=== PATIENT | female | born 1925 | race Asian ===

== ENCOUNTER 2017-07-21 09:39 | Emergency (ER) | payer MEDICARE, OTHER ==
[~2017-07-21] VITALS: Ht 152.4 cm; Wt 45.0 kg
[~2017-07-21 09:39] MED LIST: 1-ME1LIQ PO; ATOR10 PO; CALC250 PO; COMMODE 3:1; ENAL20TA PO; HYDR12.56 PO; METO25TA6 PO; SAXA5TAB2 PO; TUB TRANSFER BENCH; WALKER ROLLING; WALKER STANDARD; WHEELCHAIR RENTAL RA
[2017-07-21 09:45] VITALS: BP 167/72; PULSE 80; RESP 16; TEMP 98.5; O2SAT 96
[2017-07-21] MEDS ORDERED: SODIUM CHLOR 0.9% 1000 ML INJ 1,000 ML IV SCH (10:18)
[2017-07-21 10:30] VITALS: O2SAT 98
[2017-07-21] MEDS ORDERED: SODIUM CHLORIDE 0.9% FLUSH 10 ML FLUSH IV FLUSH PRN (10:30)
[2017-07-21] MEDS ORDERED: ONDANSETRON HCL 4 MG/2 ML VIAL IVP ONE (10:30)
[2017-07-21] MEDS ORDERED: MORPHINE SULFATE 4 MG/ML INJ IV PUSH ONE (10:30)
--- NOTE | 2017-07-21 10:30 | PD ---
HPI Chief Complaint: Abdominal Pain Time Seen by Provider: 10:18 Travel History International Travel<30 days: No Contact w/Intl Traveler<30days: No Traveled to known affect area: No History of Present Illness HPI patient complained of initially having left fingers "locking up" in place and painful, took some ibuprofen which caused pain in her fingers to improve and go away but then started to develop lower abd pain, 8/10, intermittent, over llq, assoc with nausea, but no vomiting or diarrhea/constipation. PMHX: DM, HTN , HI CHOL PFSH Past Medical History Arthritis: Yes Heart Rhythm Problems: No Cancer: No Cardiovascular Problems: Yes High Cholesterol: Yes Chest Pain: No Congestive Heart Failure: No Cerebrovascular Accident: No Diabetes: Yes Diminished Hearing: No Endocrine: Yes Genitourinary: No Hypertension: Yes Immune Disorder: No Musculoskeletal: Yes Neurologic: No Psychiatric: No Reproductive: No Respiratory: No Migraines: No Seizures: No Thyroid Disease: No Menopausal: Yes Past Surgical History Abdominal Surgery: No Cardiac Surgery: No Ear Surgery: No Endocrine Surgery: No Eye Surgery: No Genitourinary Surgery: No Gynecologic Surgery: No Oral Surgery: Yes (teeth extracted) Thoracic Surgery: No Social History Alcohol Use: No Tobacco Use: No Substance Use: No Allergies-Medications (Allergen,Severity, Reaction): Coded Allergies: No Known Allergies (Unverified , 07/21/17) Reported Meds & Prescriptions Reported Meds & Active Scripts Active Reported Vitamin D2 (Ergocalciferol) 2,000 Unit Tab 50,000 Units PO WEEKLY Aspirin 81 Mg Chew 81 Mg CHEW DAILY Centrum (Multiple Vitamins W/ Minerals) 1 Chew 1 Tab CHEW DAILY Metformin (Metformin HCl) 500 Mg Tab 500 Mg PO DAILY With a meal Metoprolol Tartrate 25 Mg Tab 25 Mg PO DAILY Lipitor (Atorvastatin Calcium) 10 Mg Tab 10 Mg PO HS Onglyza (Saxagliptin) 5 Mg Tab 5 Mg PO DAILY Hydrochlorothiazide 12.5 Mg Cap 12.5 Mg PO DAILY Enalapril (Enalapril Maleate) 20 Mg Tab 20 Mg PO DAILY Amlodipine (Amlodipine Besylate) 10 Mg Tab 10 Mg PO DAILY Review of Systems Except as stated in HPI: all other systems reviewed are Neg Gastrointestinal: Positive: Nausea, Abdominal Pain Physical Exam Narrative GENERAL: SKIN: Warm and dry. HEAD: Atraumatic. Normocephalic. EYES: Pupils equal and round. No scleral icterus. No injection or drainage. ENT: No nasal bleeding or discharge. Mucous membranes pink and moist. NECK: Trachea midline. No JVD. CARDIOVASCULAR: Regular rate and rhythm. RESPIRATORY: No accessory muscle use. Clear to auscultation. Breath sounds equal bilaterally. GASTROINTESTINAL: Abdomen soft, non-tender, nondistended, LLQ TTP MUSCULOSKELETAL: Extremities without clubbing, cyanosis, or edema. No obvious deformities. NEUROLOGICAL: Awake and alert. No obvious cranial nerve deficits. Motor grossly within normal limits. Five out of 5 muscle strength in the arms and legs. Normal speech. PSYCHIATRIC: Appropriate mood and affect; insight and judgment normal. Data Data Last Documented VS Vital Signs Date Time Temp Pulse Resp B/P (MAP) Pulse Ox O2 Delivery O2 Flow Rate FiO2 07/21/17 09:45 98.5 80 16 167/72 (103) 96 Orders Orders Complete Blood Count With Diff (07/21/17 10:18) Comprehensive Metabolic Panel (07/21/17 10:18) Lipase (07/21/17 10:18) Prothrombin Time / Inr (Pt) (07/21/17 10:18) Act Partial Throm Time (Ptt) (07/21/17 10:18) Urinalysis - C+S If Indicated (07/21/17 10:18) Ct Abd/Pel W/O Iv Contrast (07/21/17 10:18) Iv Access Insert/Monitor (07/21/17 10:18) Ecg Monitoring (07/21/17 10:18) Oximetry (07/21/17 10:18) NPO (07/21/17 10:18) Morphine Inj (Morphine Inj) (07/21/17 10:30) Ondansetron Inj (Zofran Inj) (07/21/17 10:30) Sodium Chlor 0.9% 1000 Ml Inj (Ns 1000 M (07/21/17 10:18) Sodium Chloride 0.9% Flush (Ns Flush) (07/21/17 10:30) Electrocardiogram (07/21/17 10:18) Ckmb (Isoenzyme) Profile (07/21/17 10:18) Troponin I (07/21/17 10:18) CKMB (07/21/17 10:41) CKMB% (07/21/17 10:41) Ceftriaxone Inj (Rocephin Inj) (07/21/17 12:00) Metronidazole (Flagyl) (07/21/17 12:00) Urine Culture (07/21/17 11:35) Labs Laboratory Tests Test 07/21/17 10:41 07/21/17 11:35 White Blood Count 12.5 TH/MM3 Red Blood Count 3.73 MIL/MM3 Hemoglobin 11.7 GM/DL Hematocrit 34.6 % Mean Corpuscular Volume 92.8 FL Mean Corpuscular Hemoglobin 31.5 PG Mean Corpuscular Hemoglobin Concent 33.9 % Red Cell Distribution Width 12.8 % Platelet Count 263 TH/MM3 Mean Platelet Volume 8.2 FL Neutrophils (%) (Auto) 91.0 % Lymphocytes (%) (Auto) 3.2 % Monocytes (%) (Auto) 1.8 % Eosinophils (%) (Auto) 0.2 % Basophils (%) (Auto) 3.8 % Neutrophils # (Auto) 11.4 TH/MM3 Lymphocytes # (Auto) 0.4 TH/MM3 Monocytes # (Auto) 0.2 TH/MM3 Eosinophils # (Auto) 0.0 TH/MM3 Basophils # (Auto) 0.5 TH/MM3 CBC Comment AUTO DIFF Differential Comment AUTO DIFF CONFIRMED Platelet Estimate NORMAL Platelet Morphology Comment NORMAL Prothrombin Time 10.1 SEC Prothromb Time International Ratio 0.9 RATIO Activated Partial Thromboplast Time 22.4 SEC Blood Urea Nitrogen 25 MG/DL Creatinine 0.83 MG/DL Random Glucose 210 MG/DL Total Protein 8.0 GM/DL Albumin 4.4 GM/DL Calcium Level 9.6 MG/DL Alkaline Phosphatase 60 U/L Aspartate Amino Transf (AST/SGOT) 24 U/L Alanine Aminotransferase (ALT/SGPT) 18 U/L Total Bilirubin 0.6 MG/DL Sodium Level 135 MEQ/L Potassium Level 3.7 MEQ/L Chloride Level 102 MEQ/L Carbon Dioxide Level 22.4 MEQ/L Anion Gap 11 MEQ/L Estimat Glomerular Filtration Rate 65 ML/MIN Total Creatine Kinase 122 U/L Creatine Kinase MB 2.5 NG/ML Troponin I LESS THAN 0.02 NG/ML Lipase 106 U/L Urine Collection Type CLEAN CATCH Urine Color YELLOW Urine Turbidity SLIGHT Urine pH 5.0 Urine Specific [place] 1.016 Urine Protein NEG mg/dL Urine Glucose (UA) 250 mg/dL Urine Ketones 15 mg/dL Urine Occult Blood TRACE Urine Nitrite NEG Urine Bilirubin NEG Urine Leukocyte Esterase NEG Urine RBC 0-3 /hpf Urine WBC 3-5 /hpf Urine Squamous Epithelial Cells 0-5 /hpf Urine Amorphous Sediment FEW Urine Bacteria MANY /hpf Microscopic Urinalysis Comment CULTURE INDICATED Urine Collection Time 1135 MDM Medical Decision Making Medical Screen Exam Complete: Yes Emergency Medical Condition: Yes Medical Record Reviewed: Yes Interpretation(s) NSR 73, RBBB, NO STEMI PATTERN, NO SGARBOSSA'S CRITERIA NOTED Differential Diagnosis COLITIS V ENTERITIS V DIVERTIC V OVARIAN MASS V UTERINE MASS Narrative Course DURING EVALUATION PATIENT WAS FOUND TO HAVE NL LFT'S, NL PANCREAS, NO E/O PERFORATION, OR SBO...DID HOWEVER NOTE DIVERTICULOSIS OF SIGMOID AND CALCIFIED UTERINE FIBROIDS...IN ADDITION FOUND SLIGHT LEUKOCYTOSIS OF 12K, WILL PROVIDE IV ABX Diagnosis Primary Impression: Sigmoid diverticulosis Additional Impression: CALCIFIED FIBROID UTERUS Patient Instructions: Diverticulitis Diet (ED), Diverticulosis (DC), General Instructions Scripts Metronidazole (Flagyl) 500 Mg Tab 500 MG PO TID for Infection, #21 TAB 0 Refills Prov: Grupo Valencia MD 07/21/17 Ciprofloxacin (Cipro) 500 Mg Tab 500 MG PO BID for Infection, #10 TAB 0 Refills Prov: Grupo Valencia MD 07/21/17 Tramadol (Ultram) 50 Mg Tab 50 MG PO Q6H Y for PAIN, #20 TAB 0 Refills Prov: Grupo Valencia MD 07/21/17 Disposition: 01 DISCHARGE HOME Condition: Stable Grupo Valencia MD Jul 21, 2017 10:30
[2017-07-21 10:48] LABS: AUTOMATED NEUTROPHIL # 11.4 TH/MM3 (1.8-7.7); BASOPHIL # 0.5 TH/MM3 (0-0.2); BASOPHIL % 3.8 % (0.0-2.0); EOSINOPHIL % 0.2 % (0.0-4.0); HEMATOCRIT 34.6 % (35.0-46.0); LYMPH % 3.2 % (9.0-44.0); LYMPHOCYTE # 0.4 TH/MM3 (1.0-4.8); MEAN CELL VOLUME 92.8 FL (80.0-100.0); MEAN CORPUSCULAR HEMOGLOBIN 31.5 PG (27.0-34.0); MEAN CORPUSCULAR HGB CONC 33.9 % (32.0-36.0); MONO % 1.8 % (0.0-8.0); PLATELET COUNT 263 TH/MM3 (150-450); RED BLOOD COUNT 3.73 MIL/MM3 (4.00-5.30); RED CELL DISTRIBUTION WIDTH 12.8 % (11.6-17.2); WHITE BLOOD COUNT 12.5 TH/MM3 (4.0-11.0)
[2017-07-21] MEDS ORDERED: ENAL20TA PO (10:49)
[2017-07-21] MEDS ORDERED: HYDR12.57 PO (10:49)
[2017-07-21] MEDS ORDERED: METO25TA3 PO (10:49)
[2017-07-21] MEDS ORDERED: LIPI10TA PO (10:49)
[2017-07-21] MEDS ORDERED: METF500T PO (10:49)
[2017-07-21] MEDS ORDERED: AMLO10TA2 PO (10:49)
[2017-07-21] MEDS ORDERED: ONGL5TAB PO (10:49)
[2017-07-21] MEDS ORDERED: ERGO2000 PO (10:52)
[2017-07-21] MEDS ORDERED: CENTCHW4 CHEW (10:52)
[2017-07-21] MEDS ORDERED: ASPI81CH CHEW (10:52)
[2017-07-21 10:58] LABS: HEMO FLAGS AUTO DIFF
[2017-07-21 11:01] LABS: CHLORIDE 102 MEQ/L (98-107); POTASSIUM 3.7 MEQ/L (3.5-5.1); SODIUM (NA) 135 MEQ/L (136-145)
[2017-07-21 11:05] LABS: ANION GAP 11 MEQ/L (5-15); APTT (PATIENT) 22.4 SEC (24.3-30.1); BICARBONATE 22.4 MEQ/L (21.0-32.0); BLOOD UREA NITROGEN 25 MG/DL (7-18); INTERNATIONAL NORMALIZED RATIO 0.9 RATIO; PROTHROMBIN TIME - PATIENT 10.1 SEC (9.8-11.6)
[2017-07-21 11:08] LABS: ALT (GPT) 18 U/L (10-53); AST (GOT) 24 U/L (15-37); GLOMERULAR FILTRATION RATE 65 ML/MIN (>89)
[2017-07-21 11:09] LABS: TOTAL BILIRUBIN ADULT 0.6 MG/DL (0.2-1.0)
[2017-07-21 11:10] LABS: CREATINE KINASE 122 U/L (26-192)
[2017-07-21 11:11] LABS: ALKALINE PHOSPHATASE 60 U/L (45-117)
--- NOTE | 2017-07-21 11:14 | RADRPT ---
EXAM DATE/TIME: 07/21/2017 10:50 [facility] COMPARISON: No previous studies available for comparison. INDICATIONS : Lower abdominal pain and nausea. ORAL CONTRAST: No oral contrast ingested. RADIATION DOSE: 6.17 CTDIvol (mGy) ; Patient motion MEDICAL HISTORY : Hypertension. Diabetes. SURGICAL HISTORY : Left hip surgery. ENCOUNTER: Initial ACUITY: 1 day PAIN SCALE: 3/10 LOCATION: lower quadrant TECHNIQUE: Volumetric scanning of the abdomen and pelvis was performed. Using automated exposure control and ad justment of the mA and/or kV according to patient size, radiation dose was kept as low as reasonably achievable to obtain optimal diagnostic quality images. DICOM format image data is available electro nically for review and comparison. FINDINGS: LOWER LUNGS: The visualized lower lungs are clear. LIVER: Homogeneous density without lesion. There is no dilation of the biliary tree. No calcified gallston es. SPLEEN: Normal size without lesion. PANCREAS: Within normal limits. KIDNEYS: Small 1.2 x 1.0 cm fat density mass in the superior pole of the right kidney consistent with an angio myolipoma. Kidneys otherwise demonstrate symmetrical size without evidence of radiopaque renal calcul i or hydronephrosis. ADRENAL GLANDS: Within normal limits. VASCULAR: There is no aortic aneurysm. Heavily calcified infrarenal abdominal aorta and visceral branches. BOWEL/MESENTERY: Mild sigmoid diverticulosis. No significant inflammatory changes to suggest diverticulitis. Bowel oth erwise appears unremarkable without evidence for obstruction. No significant free fluid or free air. No drainable fluid collections. ABDOMINAL WALL: Within normal limits. RETROPERITONEUM: There is no lymphadenopathy. BLADDER: No wall thickening or mass. REPRODUCTIVE: Multiple densely calcified uterine masses consistent with leiomyomas INGUINAL: There is no lymphadenopathy or hernia. MUSCULOSKELETAL: Old right inferior pubic ramus fracture. Left femoral intramedullary mason in place. Degenerative shepard es of the lower lumbar spine. CONCLUSION: 1. No definitive CT findings to explain patient's abdominal pain. 2. 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 3. Mild sigmoid diverticulosis without significant inflammatory change to suggest diverticulitis. 4. Densely calcified uterine leiomyomas. Jarad Wilson MD on July 21, 2017 at 11:08 Board Certified Radiologist. This report was verified electronically.
[2017-07-21 11:19] LABS: PLATELET ESTIMATE SMEAR NORMAL (NORMAL); PLATELET MORPHOLOGY NORMAL (NORMAL); SCAN/DIFF AUTO DIFF CONFIRMED
[2017-07-21 11:23] LABS: CKMB 2.5 NG/ML (0.5-3.6)
[2017-07-21 11:46] LABS: BLOOD, URINE TRACE (NEG); GLUCOSE,URINE 250 mg/dL (NEG); KETONE, URINE 15 mg/dL (NEG); NITRITE,URINE NEG (NEG)
[2017-07-21 11:55] LABS: BACTERIA, URINE MANY /hpf; COMMENT (UR) CULTURE INDICATED; CULTURE IF INDICATED CULTURE INDICATED; METHOD OF COLLECTION CLEAN CATCH; RBC, URINE 0-3 /hpf (0-3); SQUAMOUS EPITHELIAL CELL URINE 0-5 /hpf (0-5); URINE COLOR YELLOW (YELLW/STRAW)
[2017-07-21] MEDS ORDERED: metroNIDAZOLE 500 MG TAB PO ONE (12:00)
[2017-07-21] MEDS ORDERED: cefTRIAXone INJ 1,000 MG in SODIUM CHLORIDE 0.9% INJ 100 ML IV ONE (12:00)
[2017-07-21] MEDS ORDERED: ULTR50TA5 PO (12:20)
[2017-07-21] MEDS ORDERED: CIPR-9 PO (12:20)
[2017-07-21] MEDS ORDERED: METR-1 PO (12:20)
[2017-07-21 13:31] VITALS: BP 146/62
--- NOTE | 2017-07-21 19:16 | EKG ---
Date Performed: 07/21/2017 Time Performed: 10:30:21 PTAGE: 89 years EKG: Sinus rhythm WITH SINUS ARRHYTHMIA RIGHT BUNDLE BRANCH BLOCK ABNORMAL ECG PREVIOUS TRACING : 02/26/2016 21.10 Compared to prior tracing no significant change DOCTOR: Salvatore Hernandez Interpretating Date/Time 07/21/2017 19:16:08
== END 2017-07-21 13:34 | disposition home or self-care (01) ==
LOC: PHED 09:39
DX: K57.30 Diverticulosis of large intestine without perforation or abscess without bleeding (principal); D25.9 Leiomyoma of uterus, unspecified; E78.00 Pure hypercholesterolemia, unspecified; E11.9 Type 2 diabetes mellitus without complications; I10 Essential (primary) hypertension; R94.31 Abnormal electrocardiogram [ECG] [EKG]; B96.20 Unspecified Escherichia coli [E. coli] as the cause of diseases classified elsewhere
CPT/HCPCS: 74176; 80053; 81001; 82550; 82552; 83690; 84484; 85025; 85610; 85730; 87077; 87086; 87186; 93005; 96365; 96375; 99285; J0696; J2270; J2405; J7030

== ENCOUNTER 2017-07-25 00:58 | Emergency (ER) | payer MEDICARE, OTHER ==
[~2017-07-25] VITALS: Ht 147.3 cm; Wt 43.5 kg
[~2017-07-25 00:58] MED LIST changes: -1-ME1LIQ PO; +AMLO10TA2 PO; +ASPI81CH CHEW; -ATOR10 PO; -CALC250 PO; +CENTCHW4 CHEW; +CIPR-9 PO; -COMMODE 3:1; +ERGO2000 PO; -HYDR12.56 PO; +HYDR12.57 PO; +LIPI10TA PO; +METF500T PO; +METO25TA3 PO; -METO25TA6 PO; +METR-1 PO; +ONGL5TAB PO; -SAXA5TAB2 PO; -TUB TRANSFER BENCH; +ULTR50TA5 PO; -WALKER ROLLING; -WALKER STANDARD; -WHEELCHAIR RENTAL RA
[2017-07-25 01:09] VITALS: BP 148/67; PULSE 95; RESP 12; TEMP 97.7; O2SAT 97
[2017-07-25] MEDS ORDERED: SODIUM CHLOR 0.9% 1000 ML INJ 1,000 ML IV SCH (02:21)
[2017-07-25] MEDS ORDERED: ONDANSETRON HCL 4 MG/2 ML VIAL IVP ONE (02:30)
[2017-07-25] MEDS ORDERED: SODIUM CHLORIDE 0.9% FLUSH 10 ML FLUSH IV FLUSH PRN (02:30)
--- NOTE | 2017-07-25 02:34 | PD ---
HPI Chief Complaint: GI Complaint Time Seen by Provider: 02:19 Travel History International Travel<30 days: No Contact w/Intl Traveler<30days: No Traveled to known affect area: No History of Present Illness HPI The patient is an 89-year-old female, patient of Dr. Russell, who came in on the second of this month for nausea and vomiting and apparently had sigmoid diverticulitis shown on a CAT scan. She was not admitted and put on tramadol, Cipro and Flagyl. She did not take the tramadol, she does not want to take tramadol. She was not given anything for nausea. She states that she wants to be admitted that she has nausea and vomiting at home and her granddaughter who brought her in states she might be dehydrated.The patient is a poor historian. I have to get my information from her granddaughter who appears to be an excellent historian. Her granddaughter is limited in that she does not live permanently with her grandmother but lives in [place]. Her granddaughter began staying with the patient 3 days ago and will stay until tomorrow, Friday. The patient normally lives with her daughter who is arriving on Friday. PFSH Past Medical History Arthritis: Yes Heart Rhythm Problems: No Cancer: No Cardiovascular Problems: Yes High Cholesterol: Yes Chest Pain: No Congestive Heart Failure: No Cerebrovascular Accident: No Diabetes: Yes Patient Takes Glucophage: No Diminished Hearing: No Endocrine: Yes Genitourinary: No Hypertension: Yes Immune Disorder: No Musculoskeletal: Yes Neurologic: No Psychiatric: No Reproductive: No Respiratory: No Migraines: No Seizures: No Thyroid Disease: No Tetanus Vaccination: Unknown Influenza Vaccination: No Menopausal: Yes Past Surgical History Abdominal Surgery: No Cardiac Surgery: No Ear Surgery: No Endocrine Surgery: No Eye Surgery: No Genitourinary Surgery: No Gynecologic Surgery: No Oral Surgery: Yes (teeth extracted) Thoracic Surgery: No Other Surgery: Yes Social History Alcohol Use: No Tobacco Use: No Substance Use: No Allergies-Medications (Allergen,Severity, Reaction): Coded Allergies: No Known Allergies (Unverified , 07/25/17) Reported Meds & Prescriptions Reported Meds & Active Scripts Active Flagyl (Metronidazole) 500 Mg Tab 500 Mg PO TID Cipro (Ciprofloxacin HCl) 500 Mg Tab 500 Mg PO BID Ultram (Tramadol HCl) 50 Mg Tab 50 Mg PO Q6H PRN Reported Vitamin D2 (Ergocalciferol) 2,000 Unit Tab 50,000 Units PO WEEKLY Aspirin 81 Mg Chew 81 Mg CHEW DAILY Centrum (Multiple Vitamins W/ Minerals) 1 Chew 1 Tab CHEW DAILY Metformin (Metformin HCl) 500 Mg Tab 500 Mg PO DAILY With a meal Metoprolol Tartrate 25 Mg Tab 25 Mg PO DAILY Lipitor (Atorvastatin Calcium) 10 Mg Tab 10 Mg PO HS Onglyza (Saxagliptin) 5 Mg Tab 5 Mg PO DAILY Hydrochlorothiazide 12.5 Mg Cap 12.5 Mg PO DAILY Enalapril (Enalapril Maleate) 20 Mg Tab 20 Mg PO DAILY Amlodipine (Amlodipine Besylate) 10 Mg Tab 10 Mg PO DAILY Review of Systems ROS Limitations: Poor Historian Except as stated in HPI: all other systems reviewed are Neg Physical Exam Exam Limitations: Poor Historian Narrative GENERAL: The patient is alert, mildly dehydrated appearing, oriented 3 in minimal apparent distress with her abdominal discomfort. Her vital signs show blood pressure 148/67 but otherwise normal. SKIN: Focused skin assessment warm/dry. HEAD: Atraumatic. Normocephalic. EYES: Pupils equal and round. No scleral icterus. No injection or drainage. ENT: No nasal bleeding or discharge. Mucous membranes pink and moist. NECK: Trachea midline. No JVD. CARDIOVASCULAR: Regular rate and rhythm. No murmur appreciated. RESPIRATORY: No accessory muscle use. Clear to auscultation. Breath sounds equal bilaterally. GASTROINTESTINAL: Abdomen soft, non-tender, nondistended. Hepatic and splenic margins not palpable. No guarding or rebound is present. MUSCULOSKELETAL: No obvious deformities. No clubbing. No cyanosis. No edema. NEUROLOGICAL: Awake and alert. No obvious cranial nerve deficits. Motor grossly within normal limits. Normal speech. PSYCHIATRIC: Appropriate mood and affect; insight and judgment normal. Data Data Last Documented VS Vital Signs Date Time Temp Pulse Resp B/P (MAP) Pulse Ox O2 Delivery O2 Flow Rate FiO2 07/25/17 02:41 98 13 168/66 (100) 98 07/25/17 01:09 97.7 Orders Orders Complete Blood Count With Diff (07/25/17 02:21) Comprehensive Metabolic Panel (07/25/17 02:21) Lipase (07/25/17 02:21) Urinalysis - C+S If Indicated (07/25/17 02:21) Ondansetron Inj (Zofran Inj) (07/25/17 02:30) Sodium Chlor 0.9% 1000 Ml Inj (Ns 1000 M (07/25/17 02:21) Sodium Chloride 0.9% Flush (Ns Flush) (07/25/17 02:30) Potassium Chloride (Kcl) (07/25/17 03:30) Labs Laboratory Tests Test 07/25/17 02:40 07/25/17 03:05 White Blood Count 9.8 TH/MM3 Red Blood Count 4.01 MIL/MM3 Hemoglobin 12.9 GM/DL Hematocrit 37.4 % Mean Corpuscular Volume 93.3 FL Mean Corpuscular Hemoglobin 32.2 PG Mean Corpuscular Hemoglobin Concent 34.5 % Red Cell Distribution Width 12.9 % Platelet Count 296 TH/MM3 Mean Platelet Volume 7.6 FL Neutrophils (%) (Auto) 78.3 % Lymphocytes (%) (Auto) 11.7 % Monocytes (%) (Auto) 8.0 % Eosinophils (%) (Auto) 1.3 % Basophils (%) (Auto) 0.7 % Neutrophils # (Auto) 7.6 TH/MM3 Lymphocytes # (Auto) 1.2 TH/MM3 Monocytes # (Auto) 0.8 TH/MM3 Eosinophils # (Auto) 0.1 TH/MM3 Basophils # (Auto) 0.1 TH/MM3 CBC Comment DIFF FINAL Differential Comment Blood Urea Nitrogen 21 MG/DL Creatinine 0.98 MG/DL Random Glucose 187 MG/DL Total Protein 7.9 GM/DL Albumin 4.0 GM/DL Calcium Level 9.6 MG/DL Alkaline Phosphatase 60 U/L Aspartate Amino Transf (AST/SGOT) 41 U/L Alanine Aminotransferase (ALT/SGPT) 29 U/L Total Bilirubin 0.4 MG/DL Sodium Level 134 MEQ/L Potassium Level 3.3 MEQ/L Chloride Level 99 MEQ/L Carbon Dioxide Level 25.9 MEQ/L Anion Gap 9 MEQ/L Estimat Glomerular Filtration Rate 53 ML/MIN Lipase 188 U/L Urine Color YELLOW Urine Turbidity CLEAR Urine pH 5.5 Urine Specific [place] 1.008 Urine Protein NEG mg/dL Urine Glucose (UA) NEG mg/dL Urine Ketones 15 mg/dL Urine Occult Blood NEG Urine Nitrite NEG Urine Bilirubin NEG Urine Leukocyte Esterase TRACE Urine RBC 0-3 /hpf Urine WBC 3-5 /hpf Urine Squamous Epithelial Cells 0-5 /hpf Urine Bacteria NONE /hpf Microscopic Urinalysis Comment CULT NOT INDICATED MDM Medical Decision Making Medical Screen Exam Complete: Yes Emergency Medical Condition: Yes Medical Record Reviewed: Yes Interpretation(s) The CBC is normal. The complete metabolic profile shows a BUN of 21, GFR 53, glucose 187 with GOT of 41 and sodium 134 and potassium 3.3 but is otherwise unremarkable. The lipase is normal. The urine is normal except for trace leukocyte esterase and 15 ketones. Differential Diagnosis Diverticulitis with failure of outpatient therapy, small bowel obstruction- unlikely, dehydration, electrolyte disorder, renal insufficiency, hypo-/ hyperglycemia Narrative Course The abdomen is completely benign and the patient was hydrated with 2 L of saline. She should follow-up with her primary care physician. At this time she does not need admission. She is not nauseated at this time. Diagnosis Primary Impression: Diverticulitis Additional Instructions: I will write Zofran for nausea. She should take her antibiotic medicines as prescribed, apparently they are working. Follow-up with her primary care physician. Disposition: 01 DISCHARGE HOME Condition: Stable Apolinar Cavanaugh MD Jul 25, 2017 02:34
[2017-07-25 02:41] VITALS: BP 168/66; PULSE 98; RESP 13; O2SAT 98
[2017-07-25 02:48] LABS: AUTOMATED NEUTROPHIL # 7.6 TH/MM3 (1.8-7.7); BASOPHIL # 0.1 TH/MM3 (0-0.2); BASOPHIL % 0.7 % (0.0-2.0); EOSINOPHIL # 0.1 TH/MM3 (0-0.4); EOSINOPHIL % 1.3 % (0.0-4.0); HEMATOCRIT 37.4 % (35.0-46.0); HEMO FLAGS DIFF FINAL; LYMPH % 11.7 % (9.0-44.0); LYMPHOCYTE # 1.2 TH/MM3 (1.0-4.8); MEAN CELL VOLUME 93.3 FL (80.0-100.0); MEAN CORPUSCULAR HEMOGLOBIN 32.2 PG (27.0-34.0); MEAN CORPUSCULAR HGB CONC 34.5 % (32.0-36.0); NEUT % 78.3 % (16.0-70.0); PLATELET COUNT 296 TH/MM3 (150-450); RED BLOOD COUNT 4.01 MIL/MM3 (4.00-5.30); RED CELL DISTRIBUTION WIDTH 12.9 % (11.6-17.2); WHITE BLOOD COUNT 9.8 TH/MM3 (4.0-11.0)
[2017-07-25 02:56] LABS: CHLORIDE 99 MEQ/L (98-107); POTASSIUM 3.3 MEQ/L (3.5-5.1); SODIUM (NA) 134 MEQ/L (136-145)
[2017-07-25 03:00] LABS: ANION GAP 9 MEQ/L (5-15); BICARBONATE 25.9 MEQ/L (21.0-32.0); BLOOD UREA NITROGEN 21 MG/DL (7-18)
[2017-07-25 03:03] LABS: ALT (GPT) 29 U/L (10-53); AST (GOT) 41 U/L (15-37); GLOMERULAR FILTRATION RATE 53 ML/MIN (>89)
[2017-07-25 03:05] LABS: TOTAL BILIRUBIN ADULT 0.4 MG/DL (0.2-1.0)
[2017-07-25 03:06] LABS: ALKALINE PHOSPHATASE 60 U/L (45-117)
[2017-07-25 03:18] LABS: BLOOD, URINE NEG (NEG); GLUCOSE,URINE NEG (NEG); KETONE, URINE 15 mg/dL (NEG); NITRITE,URINE NEG (NEG); PH, URINE 5.5 (5.0-8.5)
[2017-07-25 03:21] LABS: URINE COLOR YELLOW (YELLW/STRAW)
[2017-07-25 03:23] LABS: COMMENT (UR) CULT NOT INDICATED; CULTURE IF INDICATED CULT NOT INDICATED; RBC, URINE 0-3 /hpf (0-3); SQUAMOUS EPITHELIAL CELL URINE 0-5 /hpf (0-5)
[2017-07-25] MEDS ORDERED: POTASSIUM CHLORIDE 20 MEQ CONTROLLED RELEASE TAB PO ONE (03:30)
[2017-07-25] MEDS ORDERED: ZOFR8TAB PO (03:41)
[2017-07-25 03:48] VITALS: BP 151/74
== END 2017-07-25 03:58 | disposition home or self-care (01) ==
LOC: PHED 00:58
DX: K57.92 Diverticulitis of intestine, part unspecified, without perforation or abscess without bleeding (principal); M19.90 Unspecified osteoarthritis, unspecified site; E78.00 Pure hypercholesterolemia, unspecified; E11.9 Type 2 diabetes mellitus without complications; I10 Essential (primary) hypertension; Z79.82 Long term (current) use of aspirin; Z79.899 Other long term (current) drug therapy
CPT/HCPCS: 80053; 81001; 83690; 85025; 96361; 96374; 99284; J2405; J7030

== ENCOUNTER 2017-07-28 23:40 | Inpatient (IN) | payer MEDICARE, OTHER ==
[~2017-07-28] VITALS: Ht 149.9 cm; Wt 43.6 kg
[~2017-07-28 23:40] MED LIST changes: +ZOFR8TAB PO
[2017-07-28 23:46] VITALS: BP 122/63; PULSE 91; RESP 16; TEMP 97.4; O2SAT 97
[2017-07-29] VITALS (9 sets, daily range): BP systolic 122–157; BP diastolic 63–82; PULSE 56–91; RESP 15–20; TEMP 97–98; O2SAT 96–99
[2017-07-29] MEDS ORDERED: SODIUM CHLORIDE 0.9% FLUSH 10 ML FLUSH IV FLUSH PRN ×2 (00:30→03:15)
--- NOTE | 2017-07-29 00:35 | PD ---
HPI Chief Complaint: GI Complaint Time Seen by Provider: 00:25 Travel History International Travel<30 days: No Contact w/Intl Traveler<30days: No Traveled to known affect area: No History of Present Illness HPI This is the third visit for this 89-year-old female that complains of nausea and vomiting for about 8 days. 7 days ago she was put on Flagyl and Cipro, she may not be taking the Cipro but she completed her course of Flagyl. A CAT scan on 21 July showed diverticulosis. The patient came in again for abdominal pain, nausea and vomiting and the blood work was normal and she was continued on the Cipro and Flagyl and given something for nausea. The patient comes in again for nausea and vomiting but the vomiting is dark and she has had dark stools. She denies any fever, chills and has minimal abdominal pain bilaterally in the lower quadrants. PFSH Past Medical History Arthritis: Yes Heart Rhythm Problems: No Cancer: No Cardiovascular Problems: Yes High Cholesterol: Yes Chest Pain: No Congestive Heart Failure: No Cerebrovascular Accident: No Diabetes: Yes Diminished Hearing: No Endocrine: Yes Genitourinary: No Hypertension: Yes Immune Disorder: No Musculoskeletal: Yes Neurologic: No Psychiatric: No Reproductive: No Respiratory: No Migraines: No Seizures: No Thyroid Disease: No Menopausal: Yes Past Surgical History Abdominal Surgery: No Cardiac Surgery: No Ear Surgery: No Endocrine Surgery: No Eye Surgery: No Genitourinary Surgery: No Gynecologic Surgery: No Oral Surgery: Yes (teeth extracted) Thoracic Surgery: No Other Surgery: Yes Social History Alcohol Use: No Tobacco Use: No Substance Use: No Allergies-Medications (Allergen,Severity, Reaction): Coded Allergies: No Known Allergies (Unverified , 07/29/17) Reported Meds & Prescriptions Reported Meds & Active Scripts Active Zofran (Ondansetron HCl) 8 Mg Tab 8 Mg PO TID Flagyl (Metronidazole) 500 Mg Tab 500 Mg PO TID Ultram (Tramadol HCl) 50 Mg Tab 50 Mg PO Q6H PRN Reported Vitamin D2 (Ergocalciferol) 2,000 Unit Tab 50,000 Units PO WEEKLY Aspirin 81 Mg Chew 81 Mg CHEW DAILY Centrum (Multiple Vitamins W/ Minerals) 1 Chew 1 Tab CHEW DAILY Metformin (Metformin HCl) 500 Mg Tab 500 Mg PO DAILY With a meal Metoprolol Tartrate 25 Mg Tab 25 Mg PO DAILY Lipitor (Atorvastatin Calcium) 10 Mg Tab 10 Mg PO HS Onglyza (Saxagliptin) 5 Mg Tab 5 Mg PO DAILY Hydrochlorothiazide 12.5 Mg Cap 12.5 Mg PO DAILY Enalapril (Enalapril Maleate) 20 Mg Tab 20 Mg PO DAILY Amlodipine (Amlodipine Besylate) 10 Mg Tab 10 Mg PO DAILY Review of Systems Except as stated in HPI: all other systems reviewed are Neg Physical Exam Narrative GENERAL: The patient is alert, oriented 3 in moderate apparent distress with her abdominal discomfort. The vomitus appears bloody. SKIN: Focused skin assessment warm/dry. HEAD: Atraumatic. Normocephalic. EYES: Pupils equal and round. No scleral icterus. No injection or drainage. ENT: No nasal bleeding or discharge. Mucous membranes pink and moist. NECK: Trachea midline. No JVD. CARDIOVASCULAR: Regular rate and rhythm. No murmur appreciated. RESPIRATORY: No accessory muscle use. Clear to auscultation. Breath sounds equal bilaterally. GASTROINTESTINAL: Abdomen soft, with tenderness to direct palpation in the bilateral lower quadrants, nondistended. Hepatic and splenic margins not palpable. No guarding or rebound is present. MUSCULOSKELETAL: No obvious deformities. No clubbing. No cyanosis. No edema. NEUROLOGICAL: Awake and alert. No obvious cranial nerve deficits. Motor grossly within normal limits. Normal speech. PSYCHIATRIC: Appropriate mood and affect; insight and judgment normal. RECTAL EXAM: No masses or tenderness, stool is dark brown and guaiac positive. Data Data Last Documented VS Vital Signs Date Time Temp Pulse Resp B/P (MAP) Pulse Ox O2 Delivery O2 Flow Rate FiO2 07/29/17 02:14 16 98 Room Air 07/29/17 01:40 83 07/29/17 00:53 97.4 Orders Orders Complete Blood Count With Diff (07/29/17 00:25) Comprehensive Metabolic Panel (07/29/17 00:25) Lipase (07/29/17:25) Urinalysis - C+S If Indicated (07/29/17:25) Ct Abd/Pel W Iv Contrast(Rout) (07/29/17:25) Iv Access Insert/Monitor (07/29/17 00:25) Ecg Monitoring (07/29/17 00:25) Oximetry (07/29/17:25) Sodium Chloride 0.9% Flush (Ns Flush) (07/29/17 00:30) Coag Profile (07/29/17 00:31) Sodium Chlor 0.9% 1000 Ml Inj (Ns 1000 M (07/29/17 00:45) Iohexol 350 Inj (Omnipaque 350 Inj) (07/29/17 01:57) Place In Observation (07/29/17 ) Vital Signs (Adult) Q4H (07/29/17 03:07) Activity Oob With Assistance (07/29/17 03:07) Hardener Helper / Telemetry .CONTINUOUS (07/29/17 03:07) Intake + Output NANCIE.QSHIFT (07/29/17 03:07) Sodium Chlor 0.9% 1000 Ml Inj (Ns 1000 M (07/29/17 03:07) Sodium Chloride 0.9% Flush (Ns Flush) (07/29/17 03:15) Sodium Chloride 0.9% Flush (Ns Flush) (07/29/17 09:00) Basic Metabolic Panel (Bmp) (07/30/17 06:00) Complete Blood Count With Diff (07/30/17 06:00) Pt Request For Service (07/29/17 03:07) Case Management Consult (07/29/17 03:07) Naloxone Inj (Narcan Inj) (07/29/17 03:15) Piperacil-Tazo 4.5 Gm Premix (Zosyn 4.5 (07/29/17 03:00) Hgb & Hct (07/29/17 06:00) Hgb & Hct (07/29/17 12:00) Hgb & Hct (07/29/17 18:00) Admit Order (Ed Use Only) (07/29/17 03:16) Labs Laboratory Tests Test 07/29/17 00:47 07/29/17 02:46 White Blood Count 13.6 TH/MM3 Red Blood Count 4.20 MIL/MM3 Hemoglobin 13.2 GM/DL Hematocrit 39.2 % Mean Corpuscular Volume 93.1 FL Mean Corpuscular Hemoglobin 31.4 PG Mean Corpuscular Hemoglobin Concent 33.7 % Red Cell Distribution Width 12.7 % Platelet Count 313 TH/MM3 Mean Platelet Volume 8.0 FL Neutrophils (%) (Auto) 84.1 % Lymphocytes (%) (Auto) 6.5 % Monocytes (%) (Auto) 7.6 % Eosinophils (%) (Auto) 1.4 % Basophils (%) (Auto) 0.4 % Neutrophils # (Auto) 11.4 TH/MM3 Lymphocytes # (Auto) 0.9 TH/MM3 Monocytes # (Auto) 1.0 TH/MM3 Eosinophils # (Auto) 0.2 TH/MM3 Basophils # (Auto) 0.1 TH/MM3 CBC Comment DIFF FINAL Differential Comment Prothrombin Time 10.8 SEC Prothromb Time International Ratio 1.0 RATIO Activated Partial Thromboplast Time 25.7 SEC Blood Urea Nitrogen 15 MG/DL Creatinine 0.87 MG/DL Random Glucose 199 MG/DL Total Protein 7.5 GM/DL Albumin 3.8 GM/DL Calcium Level 8.7 MG/DL Alkaline Phosphatase 59 U/L Aspartate Amino Transf (AST/SGOT) 21 U/L Alanine Aminotransferase (ALT/SGPT) 24 U/L Total Bilirubin 0.5 MG/DL Sodium Level 125 MEQ/L Potassium Level 3.4 MEQ/L Chloride Level 89 MEQ/L Carbon Dioxide Level 25.1 MEQ/L Anion Gap 11 MEQ/L Estimat Glomerular Filtration Rate 61 ML/MIN Lipase 286 U/L Urine Color YELLOW Urine Turbidity CLEAR Urine pH 6.0 Urine Specific Tay[place] 1.024 Urine Protein NEG mg/dL Urine Glucose (UA) NEG mg/dL Urine Ketones TRACE mg/dL Urine Occult Blood NEG Urine Nitrite NEG Urine Bilirubin NEG Urine Leukocyte Esterase NEG Urine WBC 0-2 /hpf Urine Squamous Epithelial Cells 0-5 /hpf Urine Hyaline Casts 0-2 /lpf Urine Mucus OCC /lpf Microscopic Urinalysis Comment CULT NOT INDICATED MDM Medical Decision Making Medical Screen Exam Complete: Yes Emergency Medical Condition: Yes Medical Record Reviewed: Yes Interpretation(s) The CBC shows a white count of 13,600 with 84% neutrophils. The complete metabolic profile shows a sodium of 125, potassium 3.4 with glucose 199 but is otherwise normal the lipase is normal. The coagulation profile is normal. The CT abdomen/pelvis with IV contrast shows no definite acute CT findings and the abdomen or pelvis. Differential Diagnosis Diverticulitis, colitis, perforated diverticula, dehydration, hematemesis, lower GI bleed, anemia, electrolyte disorder Narrative Course The CT scan did not show any acute disease of the abdomen/pelvis. The patient however is vomiting blood and is passing blood in the stool. She does have continued abdominal pain. This reason she will be admitted, we can get in- house consultation, IV fluids and IV nausea medicines as well as pain medications. Physician Communication Physician Communication I discussed the patient with Dr. Mcneill, the patient will be admitted to her. Diagnosis Primary Impression: Hematemesis Additional Impressions: Lower GI bleed Intractable abdominal pain Intractable vomiting with nausea Apolinar Cavanaugh MD Jul 29, 2017 00:35
[2017-07-29] MEDS ORDERED: SODIUM CHLOR 0.9% 1000 ML INJ 1,000 ML IV SCH (00:45)
[2017-07-29 01:03] LABS: AUTOMATED NEUTROPHIL # 11.4 TH/MM3 (1.8-7.7); BASOPHIL # 0.1 TH/MM3 (0-0.2); BASOPHIL % 0.4 % (0.0-2.0); EOSINOPHIL # 0.2 TH/MM3 (0-0.4); EOSINOPHIL % 1.4 % (0.0-4.0); HEMATOCRIT 39.2 % (35.0-46.0); HEMO FLAGS DIFF FINAL; LYMPH % 6.5 % (9.0-44.0); LYMPHOCYTE # 0.9 TH/MM3 (1.0-4.8); MEAN CELL VOLUME 93.1 FL (80.0-100.0); MEAN CORPUSCULAR HEMOGLOBIN 31.4 PG (27.0-34.0); MEAN CORPUSCULAR HGB CONC 33.7 % (32.0-36.0); MONO % 7.6 % (0.0-8.0); NEUT % 84.1 % (16.0-70.0); PLATELET COUNT 313 TH/MM3 (150-450); RED CELL DISTRIBUTION WIDTH 12.7 % (11.6-17.2); WHITE BLOOD COUNT 13.6 TH/MM3 (4.0-11.0)
[2017-07-29 01:13] LABS: CHLORIDE 89 MEQ/L (98-107); POTASSIUM 3.4 MEQ/L (3.5-5.1); SODIUM (NA) 125 MEQ/L (136-145)
[2017-07-29 01:17] LABS: ANION GAP 11 MEQ/L (5-15); BICARBONATE 25.1 MEQ/L (21.0-32.0); BLOOD UREA NITROGEN 15 MG/DL (7-18)
[2017-07-29 01:18] LABS: APTT (PATIENT) 25.7 SEC (24.3-30.1); PROTHROMBIN TIME - PATIENT 10.8 SEC (9.8-11.6)
[2017-07-29 01:20] LABS: ALT (GPT) 24 U/L (10-53); AST (GOT) 21 U/L (15-37); GLOMERULAR FILTRATION RATE 61 ML/MIN (>89)
[2017-07-29 01:21] LABS: TOTAL BILIRUBIN ADULT 0.5 MG/DL (0.2-1.0)
[2017-07-29 01:22] LABS: ALKALINE PHOSPHATASE 59 U/L (45-117)
[2017-07-29] MEDS ORDERED: IOHEXOL 350 MG/ML 10 ML VIAL (for RAD DIAG) IVCONTRAST ONE (01:57)
[2017-07-29] MEDS: METFORMIN HOLD POST IV CONTRAST SCH (02:00)
--- NOTE | 2017-07-29 02:05 | RADRPT ---
EXAM DATE/TIME: 07/29/2017 01:45 [facility] COMPARISON: No previous studies available for comparison. INDICATIONS : Bilateral lower quadrant pain for eight days. IV CONTRAST: 75 cc Omnipaque 350 (iohexol) IV ORAL CONTRAST: No oral contrast ingested. RADIATION DOSE: 4.77 CTDIvol (mGy) MEDICAL HISTORY : Diabetes mellitus type 2. Hypertension. SURGICAL HISTORY : None. ENCOUNTER: Initial ACUITY: 1 week PAIN SCALE: 6/10 LOCATION: Bilateral lower quadrant TECHNIQUE: Volumetric scanning of the abdomen and pelvis was performed. Using automated exposure control and ad justment of the mA and/or kV according to patient size, radiation dose was kept as low as reasonably achievable to obtain optimal diagnostic quality images. DICOM format image data is available electro nically for review and comparison. FINDINGS: LOWER LUNGS: The visualized lower lungs are clear. LIVER: Homogeneous density without lesion. There is no dilation of the biliary tree. No calcified gallston es. SPLEEN: Normal size without lesion. PANCREAS: Within normal limits. KIDNEYS: Small fatty density mass involving the posterior lateral upper pole cortex of the right kidney is pre sumably an angiomyolipoma. This lesion measures about 15 mm in size. Left kidney is unremarkable. ADRENAL GLANDS: Within normal limits. VASCULAR: Dense atherosclerotic involvement of the vascular structures. No evidence of aneurysm. BOWEL/MESENTERY: Hiatal hernia. The stomach, small bowel, and colon demonstrate no acute abnormality. There is no shekhar e intraperitoneal air or fluid. ABDOMINAL WALL: Small fat containing umbilical hernia. RETROPERITONEUM: There is no lymphadenopathy. BLADDER: No wall thickening or mass. REPRODUCTIVE: Fibroid uterus with multiple calcifications. No evidence of pelvic mass or free fluid. INGUINAL: There is no lymphadenopathy or hernia. MUSCULOSKELETAL: Previous pinning of the left hip. Degenerative changes in the spine. CONCLUSION: No definite acute CT findings in the abdomen or pelvis. Roberto Cisse MD on July 29, 2017 at 2:00 Board Certified Radiologist. This report was verified electronically.
[2017-07-29 02:55] LABS: BLOOD, URINE NEG (NEG); GLUCOSE,URINE NEG (NEG); KETONE, URINE TRACE mg/dL (NEG); NITRITE,URINE NEG (NEG)
[2017-07-29] MEDS ORDERED: PIPERACIL-TAZO 4.5 GM PREMIX 100 ML IV SCH (03:00)
[2017-07-29 03:12] LABS: URINE COLOR YELLOW (YELLW/STRAW)
[2017-07-29 03:13] LABS: HYALINE CAST, URINE 0-2 /lpf (RARE); MUCUS URINE OCC /lpf (OCC); SQUAMOUS EPITHELIAL CELL URINE 0-5 /hpf (0-5); WBC, URINE 0-2 /hpf (0-5)
[2017-07-29 03:14] LABS: COMMENT (UR) CULT NOT INDICATED; CULTURE IF INDICATED CULT NOT INDICATED
[2017-07-29] MEDS ORDERED: NALOXONE HCL 0.4 MG/ML AMP IV PUSH PRN (03:15)
[2017-07-29] MEDS: PIPERACIL-TAZO 3.375 GM PREMIX 50 ML IV SCH ×4 (03:33→20:36)
[2017-07-29] MEDS: SODIUM CHLOR 0.9% 1000 ML INJ 1,000 ML IV SCH ×3 (03:33→23:20)
[2017-07-29 06:56] LABS: AUTOMATED NEUTROPHIL # 7.8 TH/MM3 (1.8-7.7); BASOPHIL % 0.4 % (0.0-2.0); EOSINOPHIL # 0.2 TH/MM3 (0-0.4); EOSINOPHIL % 1.8 % (0.0-4.0); HEMATOCRIT 37.5 % (35.0-46.0); HEMO FLAGS DIFF FINAL; LYMPH % 9.4 % (9.0-44.0); LYMPHOCYTE # 0.9 TH/MM3 (1.0-4.8); MEAN CELL VOLUME 95.1 FL (80.0-100.0); MEAN CORPUSCULAR HEMOGLOBIN 31.8 PG (27.0-34.0); MEAN CORPUSCULAR HGB CONC 33.4 % (32.0-36.0); MONO % 8.1 % (0.0-8.0); NEUT % 80.3 % (16.0-70.0); PLATELET COUNT 299 TH/MM3 (150-450); RED BLOOD COUNT 3.95 MIL/MM3 (4.00-5.30); WHITE BLOOD COUNT 9.8 TH/MM3 (4.0-11.0)
[2017-07-29 07:44] LABS: POTASSIUM 3.4 MEQ/L (3.5-5.1)
[2017-07-29 07:47] LABS: BICARBONATE 24.3 MEQ/L (21.0-32.0)
[2017-07-29] MEDS: SODIUM CHLORIDE 0.9% FLUSH 10 ML FLUSH IV FLUSH SCH ×2 (09:07→20:36)
[2017-07-29 12:35] LABS: HEMATOCRIT 36.8 % (35.0-46.0); REVIEW FLAG FINAL
--- NOTE | 2017-07-29 14:48 | HHI.HP ---
[facility] Non-Staff Admission Diagnosis hematemesis, lower GI bleed, intractable abdominal pain Diagnoses: (1) Intractable vomiting with nausea Diagnosis: Principal (2) Intractable abdominal pain Diagnosis: Principal (3) Lower GI bleed Diagnosis: Principal (4) Hematemesis Diagnosis: Principal Travel History International Travel<30 Days: No Contact w/Intl Traveler <30 Da: No Traveled to Known Affected Are: No History of Present Illness Mrs. Vogel is an 89-year-old female. She came in with reports of abdominal pain. Hematemesis and melena are present. The patient does not have a reported prior history of bleeding. She has a past history of hypertension, diabetes mellitus type 2, hyperlipidemia, and osteoarthritis. No known history of anything such as ulcerative colitis or Crohn's disease. She does report that her has a past history of ulcer. She immigrated from [place] in [id number]. No other complaints. Nausea and vomiting are present. No chest pain. No fever or rash. Review of Systems Constitutional: DENIES: Diaphoretic episodes, Fatigue, Fever, Chills Eyes: DENIES: Blurred vision, Diplopia, Eye inflammation, Eye pain Ears, nose, mouth, throat: DENIES: Tinnitus, Hearing loss, Vertigo Respiratory: DENIES: Apneas, Cough, Snoring, Wheezing, Shortness of breath Cardiovascular: DENIES: Chest pain, Palpitations, Syncope Gastrointestinal: COMPLAINS OF: Abdominal pain, Black stools, Nausea, Vomiting , DENIES: Bloody stools, Constipation, Diarrhea Musculoskeletal: DENIES: Joint pain, Muscle aches, Stiffness Integumentary: DENIES: Abnormal pigmentation, Pruritus, Rash Hematologic/lymphatic: DENIES: Bruising, Lymphadenopathy Immunologic/allergic: DENIES: Eczema, Urticaria Neurologic: DENIES: Abnormal gait, Headache, Localized weakness Psychiatric: DENIES: Anxiety, Confusion, Depression Past Family Social History Past Medical History Hypertension Diabetes mellitus type 2 Hyperlipidemia Osteoarthritis Cataracts Past Surgical History Cataract History of left hip dislocation with kneeling Reported Medications Reported Meds & Active Scripts Active Zofran (Ondansetron HCl) 8 Mg Tab 8 Mg PO TID Flagyl (Metronidazole) 500 Mg Tab 500 Mg PO TID Ultram (Tramadol HCl) 50 Mg Tab 50 Mg PO Q6H PRN Reported Vitamin D2 (Ergocalciferol) 2,000 Unit Tab 50,000 Units PO WEEKLY Aspirin 81 Mg Chew 81 Mg CHEW DAILY Centrum (Multiple Vitamins W/ Minerals) 1 Chew 1 Tab CHEW DAILY Metformin (Metformin HCl) 500 Mg Tab 500 Mg PO DAILY With a meal Metoprolol Tartrate 25 Mg Tab 25 Mg PO DAILY Lipitor (Atorvastatin Calcium) 10 Mg Tab 10 Mg PO HS Onglyza (Saxagliptin) 5 Mg Tab 5 Mg PO DAILY Hydrochlorothiazide 12.5 Mg Cap 12.5 Mg PO DAILY Enalapril (Enalapril Maleate) 20 Mg Tab 20 Mg PO DAILY Amlodipine (Amlodipine Besylate) 10 Mg Tab 10 Mg PO DAILY Allergies: Coded Allergies: No Known Allergies (Unverified , 07/29/17) Active Ordered Medications Administered Medications Medications (Trade) Dose Ordered Sig/Gurdeep Route PRN Reason Start Time Stop Time Status Last Admin Dose Admin Sodium Chloride 1,000 ml @ 100 mls/hr Q10H IV 07/29/17 03:07 07/29/17 03:33 Sodium Chloride (NS Flush) 2 ml BID IV FLUSH 07/29/17 09:00 07/29/17 09:07 Piperacillin Sod/ Tazobactam Sod 50 ml @ 200 mls/hr Q6H IV 07/29/17 03:00 07/29/17 09:07 Family History No reported past medical history of her mother or father has a history of gastric ulcer Social History No history of smoking No history of alcohol abuse History of drug abuse Physical Exam Vital Signs Vital Signs Date Time Temp Pulse Resp B/P (MAP) Pulse Ox O2 Delivery O2 Flow Rate FiO2 07/29/17 13:09 97.0 75 16 140/82 (101) 98 07/29/17 08:00 97.3 56 15 137/69 (91) 99 07/29/17 07:35 07/29/17 07:15 97.9 61 16 148/65 (92) 98 Room Air 07/29/17 07:15 16 07/29/17 04:21 62 16 126/71 (89) 96 Room Air 07/29/17 02:14 16 98 Room Air 07/29/17 01:40 83 16 157/71 (99) 98 Room Air 07/29/17 00:53 97.4 91 16 122/63 (82) 97 07/28/17 23:46 97.4 91 16 122/63 (82) 97 Physical Exam GENERAL: NAD, A&Ox3 HEAD: Normocephalic. NECK: Supple, trachea midline. No lymphadenopathy. EYES: No scleral icterus. No injection or drainage. CARDIOVASCULAR: Regular rate and rhythm without murmurs, gallops, or rubs. RESPIRATORY: Breath sounds equal bilaterally. No accessory muscle use. GASTROINTESTINAL: Abdomen soft, non-tender, nondistended. MUSCULOSKELETAL: No cyanosis, or edema. SKIN: Warm and dry. NEURO: No focal neurological deficitis. Laboratory Laboratory Tests Test 07/29/17 00:47 07/29/17 02:46 07/29/17 06:00 07/29/17 11:55 White Blood Count 13.6 9.8 Red Blood Count 4.20 3.95 Hemoglobin 13.2 12.5 12.8 Hematocrit 39.2 37.5 36.8 Mean Corpuscular Volume 93.1 95.1 Mean Corpuscular Hemoglobin 31.4 31.8 Mean Corpuscular Hemoglobin Concent 33.7 33.4 Red Cell Distribution Width 12.7 13.0 Platelet Count 313 299 Mean Platelet Volume 8.0 8.2 Neutrophils (%) (Auto) 84.1 80.3 Lymphocytes (%) (Auto) 6.5 9.4 Monocytes (%) (Auto) 7.6 8.1 Eosinophils (%) (Auto) 1.4 1.8 Basophils (%) (Auto) 0.4 0.4 Neutrophils # (Auto) 11.4 7.8 Lymphocytes # (Auto) 0.9 0.9 Monocytes # (Auto) 1.0 0.8 Eosinophils # (Auto) 0.2 0.2 Basophils # (Auto) 0.1 0.0 CBC Comment DIFF FINAL DIFF FINAL Differential Comment Prothrombin Time 10.8 Prothromb Time International Ratio 1.0 Activated Partial Thromboplast Time 25.7 Blood Urea Nitrogen 15 11 Creatinine 0.87 0.71 Random Glucose 199 147 Total Protein 7.5 Albumin 3.8 Calcium Level 8.7 8.0 Alkaline Phosphatase 59 Aspartate Amino Transf (AST/SGOT) 21 Alanine Aminotransferase (ALT/SGPT) 24 Total Bilirubin 0.5 Sodium Level 125 128 Potassium Level 3.4 3.4 Chloride Level 89 96 Carbon Dioxide Level 25.1 24.3 Anion Gap 11 8 Estimat Glomerular Filtration Rate 61 78 Lipase 286 Urine Color YELLOW Urine Turbidity CLEAR Urine pH 6.0 Urine Specific [place] 1.024 Urine Protein NEG Urine Glucose (UA) NEG Urine Ketones TRACE Urine Occult Blood NEG Urine Nitrite NEG Urine Bilirubin NEG Urine Leukocyte Esterase NEG Urine WBC 0-2 Urine Squamous Epithelial Cells 0-5 Urine Hyaline Casts 0-2 Urine Mucus OCC Microscopic Urinalysis Comment CULT NOT INDICATED Result Diagram: 07/29/17 1155 07/29/17 0600 Caprini VTE Risk Assessment Caprini VTE Risk Assessment: No/Low Risk (score <= 1) Caprini Risk Assessment Model Point Value = 1 Point Value = 2 Point Value = 3 Point Value = 5 Age 41-60 Minor surgery BMI > 25 kg/m2 Swollen legs Varicose veins or History of unexplained or recurrent spontaneous Oral contraceptives or hormone replacement Sepsis (< 1 month) Serious lung disease, including pneumonia (< 1 month) Abnormal pulmonary function Acute myocardial infarction Congestive heart failure (< 1 month) History of inflammatory bowel disease Medical patient at bed rest Age 61-74 Arthroscopic surgery Major open surgery (> 45 min) Laparoscopic surgery (> 45 min) Malignancy Confined to bed (> 72 hours) Immobilizing plaster cast Central venous access Age >= 75 History of VTE Family history of VTE Factor V Leiden Prothrombin [id number] Lupus anticoagulant Anticardiolipin antibodies Elevated serum homocysteine Heparin-induced thrombocytopenia Other congenital or acquired thrombophilia Stroke (< 1 month) Elective arthroplasty Hip, pelvis, or leg fracture Acute spinal cord injury (< 1 month) Prophylaxis Regimen Total Risk Factor Score Risk Level Prophylaxis Regimen 0-1 Low Early ambulation 2 Moderate Order ONE of the following: *Sequential Compression Device (SCD) *Heparin 5000 units SQ BID 3-4 Higher Order ONE of the following medications: *Heparin 5000 units SQ TID *Enoxaparin/Lovenox 40 mg SQ daily (WT < 150 kg, CrCl > 30 mL/min) *Enoxaparin/Lovenox 30 mg SQ daily (WT < 150 kg, CrCl > 10-29 mL/min) *Enoxaparin/Lovenox 30 mg SQ BID (WT < 150 kg, CrCl > 30 mL/min) AND/OR *Sequential Compression Device (SCD) 5 or more Highest Order ONE of the following medications: *Heparin 5000 units SQ TID (Preferred with Epidurals) *Enoxaparin/Lovenox 40 mg SQ daily (WT < 150 kg, CrCl > 30 mL/min) *Enoxaparin/Lovenox 30 mg SQ daily (WT < 150 kg, CrCl > 10-29 mL/min) *Enoxaparin/Lovenox 30 mg SQ BID (WT < 150 kg, CrCl > 30 mL/min) AND *Sequential Compression Device (SCD) Assessment and Plan Problem List: (1) Hematemesis ICD Code: K92.0 - Hematemesis Status: Acute (2) Lower GI bleed ICD Code: K92.2 - Gastrointestinal hemorrhage, unspecified Status: Acute (3) Intractable abdominal pain ICD Code: R10.9 - Unspecified abdominal pain Status: Acute (4) Intractable vomiting with nausea ICD Code: R11.2 - Nausea with vomiting, unspecified Status: Acute Assessment and Plan Assessment and plan 89-year-old female admitted secondary to abdominal pain with evidence of hematemesis lower GI bleeding Hematemesis GI bleed Abdominal pain Continue as needed pain treatments Clear liquids for now GI consulted Follow hemoglobin levels IV hydration Hypertension Follow blood pressures Continue baseline treatments Adjust as needed Diabetes mellitus type 2 Follow blood sugars Insulin sliding scale Diabetic diet Hyperlipidemia Continue to monitor as an outpatient DVT prophylaxis SCDs given active bleed Physician Certification 2 Midnight Certification Type: Admission for Inpatient Services Order for Inpatient Services The services are ordered in accordance with Medicare regulations or non- Medicare payer requirements, as applicable. In the case of services not specified as inpatient-only, they are appropriately provided as inpatient services in accordance with the 2-midnight benchmark. Estimated LOS (days): 2 days is the estimated time the patient will need to remain in the hospital, assuming treatment plan goals are met and no additional complications. Post-Hospital Plan: Home Hans Holt MD Jul 29, 2017 14:48
[2017-07-29 18:52] LABS: HEMATOCRIT 37.2 % (35.0-46.0); REVIEW FLAG FINAL
[2017-07-30] VITALS: BP 150/78; PULSE 71; RESP 20; TEMP 98; O2SAT 99
[2017-07-30] MEDS: METFORMIN HOLD POST IV CONTRAST SCH (02:00)
[2017-07-30] MEDS: PIPERACIL-TAZO 3.375 GM PREMIX 50 ML IV SCH ×4 (02:34→21:00)
[2017-07-30 04:00] VITALS: BP 165/87; PULSE 82; RESP 20; TEMP 98; O2SAT 96
[2017-07-30 08:00] VITALS: BP 170/89; PULSE 74; PULSE 80; RESP 16; TEMP 98.1; O2SAT 96
[2017-07-30] MEDS: NS + KCL 40 MEQ INJ 1,000 ML IV SCH (08:30)
[2017-07-30] MEDS: SODIUM CHLORIDE 0.9% FLUSH 10 ML FLUSH IV FLUSH SCH ×2 (09:00→21:00)
--- NOTE | 2017-07-30 12:02 | HHI.PR ---
Subjective Remarks Abdominal pain feeling better. Plan for scoping today. Patient had a bowel movement without blood. Objective Vital Signs Date Time Temp Pulse Resp B/P (MAP) Pulse Ox O2 Delivery O2 Flow Rate FiO2 07/30/17 11:15 96.5 67 18 162/81 (108) 95 07/30/17 08:00 74 07/30/17 08:00 98.1 80 16 170/89 (116) 96 07/30/17 04:00 98.0 82 20 165/87 (113) 96 07/30/17 00:00 98.0 71 20 150/78 (102) 99 07/29/17 20:00 78 07/29/17 20:00 98.0 74 20 140/77 (98) 97 07/29/17 18:02 97.3 72 16 149/79 (102) 97 07/29/17 13:09 97.0 75 16 140/82 (101) 98 I/O 07/29/17 07/29/17 07/29/17 07/30/17 07/30/17 07/30/17 07:00 15:00 23:00 07:00 15:00 23:00 Intake Total 1050 ml 50 ml 900 ml 110 ml Output Total 300 ml Balance 750 ml 50 ml 900 ml 110 ml Intake Oral 800 ml 60 ml IV Total 1050 ml 50 ml 100 ml 50 ml Output Urine Total 300 ml # Voids 3 7 2 # Bowel Movements 1 0 Result Diagram: 07/29/17 1820 07/29/17 0600 Objective Remarks GENERAL: NAD, A&Ox3 HEAD: Normocephalic. NECK: Supple, trachea midline. No lymphadenopathy. EYES: No scleral icterus. No injection or drainage. CARDIOVASCULAR: Regular rate and rhythm without murmurs, gallops, or rubs. RESPIRATORY: Breath sounds equal bilaterally. No accessory muscle use. GASTROINTESTINAL: Abdomen soft, non-tender, nondistended. MUSCULOSKELETAL: No cyanosis, or edema. SKIN: Warm and dry. NEURO: No focal neurological deficitis. A/P Problem List: (1) Intractable vomiting with nausea ICD Code: R11.2 - Nausea with vomiting, unspecified Status: Acute (2) Intractable abdominal pain ICD Code: R10.9 - Unspecified abdominal pain Status: Acute (3) Lower GI bleed ICD Code: K92.2 - Gastrointestinal hemorrhage, unspecified Status: Acute (4) Hematemesis ICD Code: K92.0 - Hematemesis Status: Acute Assessment and Plan Assessment and plan 89-year-old female admitted secondary to abdominal pain with evidence of hematemesis lower GI bleeding Hematemesis GI bleed Abdominal pain Slight decline in hemoglobin but relatively stable Plan for GI scope today Abdominal pain improved today Continue as needed pain treatments Clear liquids for now GI consulted Follow hemoglobin levels IV hydration Hypertension Follow blood pressures Continue baseline treatments Adjust as needed Diabetes mellitus type 2 Follow blood sugars Insulin sliding scale Diabetic diet Hyperlipidemia Continue to monitor as an outpatient DVT prophylaxis SCDs given active bleed Hans Holt MD Jul 30, 2017 12:02
[2017-07-30] MEDS ORDERED: LACTATED RINGER'S 1000 ML IV PRN (12:30)
[2017-07-30] MEDS ORDERED: SODIUM CHLORID 0.9% 500 ML IV PRN (12:30)
[2017-07-30] MEDS ORDERED: METOPROLOL TARTRATE 25 MG TAB PO PRN (12:30)
[2017-07-30] MEDS ORDERED: POVIDONE IODINE 5% (ANTISEPSIS KIT) 4 APPLICATIONS EACH NARE PRN (12:30)
[2017-07-30] MEDS ORDERED: CHLORHEXIDINE GLUCONATE 2 % 1 PACK (2 CLOTHS) TOPICAL PRN (12:30)
[2017-07-30] MEDS ORDERED: INSULIN HUMAN REGULAR 1,000 UNITS/10 ML VIAL SQ PRN (12:30)
[2017-07-30] MEDS ORDERED: PROPOFOL 200 MG/20 ML AMP IV ONE (13:12)
--- NOTE | 2017-07-30 13:18 | PD.PROCEDR ---
GI Procedure PROCEDURE PERFORMED EGD with Bx INDICATION FOR PROCEDURE GI bleed PROCEDURE: The procedure, risks and benefits were discussed with Ms. Vogel and informed consent was obtained. Anesthesia sedated her with Diprivan. She was placed in the left lateral decubitus position. EGD: The Pentax videoscope was introduced through the oropharynx and advanced to the second portion of the duodenum under direct visualization. Retroflexion was performed in the stomach biopsy from the distal esophagus, and from the antrum. ESTIMATED BLOOD LOSS: None SPECIMENS REMOVED: Distal esophagus, antrum COMPLICATIONS: None IMPRESSION: Severe grade D esophagitis biopsy was done Multiple large ulcers in the antrum and body of the stomach biopsy was done Mild duodenitis PLAN: No NSAIDs Protonix 40 mg daily Follow-up biopsy EGD in two-month Okay to start feeding advance as tolerated Follow-up H&H with packed RBC as needed Jeff Nation MD Jul 30, 2017 13:18
--- NOTE | 2017-07-30 13:20 | HHI.GIFU ---
Subjective Remarks Patient laying in bed comfortably, no significant complaint at this time, deny active GI bleed Objective Vitals I&O Vital Signs Date Time Temp Pulse Resp B/P (MAP) Pulse Ox O2 Delivery O2 Flow Rate FiO2 07/30/17 08:00 74 07/30/17 08:00 98.1 80 16 170/89 (116) 96 07/30/17 04:00 98.0 82 20 165/87 (113) 96 07/30/17 00:00 98.0 71 20 150/78 (102) 99 07/29/17 20:00 78 07/29/17 20:00 98.0 74 20 140/77 (98) 97 07/29/17 18:02 97.3 72 16 149/79 (102) 97 I/O 07/29/17 07/29/17 07/29/17 07/30/17 07/30/17 07/30/17 07:00 15:00 23:00 07:00 15:00 23:00 Intake Total 1050 ml 50 ml 900 ml 110 ml 350 ml Output Total 300 ml Balance 750 ml 50 ml 900 ml 110 ml 350 ml Intake Oral 800 ml 60 ml IV Total 1050 ml 50 ml 100 ml 50 ml 350 ml Output Urine Total 300 ml # Voids 3 7 2 # Bowel Movements 1 0 Laboratory Laboratory Tests Test 07/29/17 18:20 Hemoglobin 12.5 Hematocrit 37.2 Physical Exam HEENT: Pupils round and reactive to light; normocephalic; atraumatic; no jaundice. Throat is clear. NECK: Neck is supple, no JVD, no lymphadenopathy. CHEST: Chest is clear to auscultation and percussion. CARDIAC: Regular rate and rhythm with no murmur gallop or rubs. ABDOMEN: Soft, nondistended, nontender; no hepatosplenomegaly; bowel sounds are present in all four quadrants. EXTREMITIES: No clubbing, cyanosis, or edema. SKIN: Normal; no rash; no jaundice. DIRECTOR FUNERAL: No focal deficits; alert and oriented times three. Assessment and Plan Plan Patient is doing okay no active bleed, laying in bed comfortably, upper endoscopy was done IMPRESSION: Severe grade D esophagitis biopsy was done Multiple large ulcers in the antrum and body of the stomach biopsy was done Mild duodenitis PLAN: No NSAIDs Protonix 40 mg daily Follow-up biopsy EGD in two-month Okay to start feeding advance as tolerated Follow-up H&H with packed RBC as needed Jeff Nation MD Jul 30, 2017 13:20
[2017-07-30] MEDS: PANTOPRAZOLE SOD 40 MG DELAYED RELEASE TAB PO SCH (15:41)
[2017-07-30 16:00] VITALS: BP 176/87; PULSE 81; RESP 18; TEMP 98.1; O2SAT 96
[2017-07-30 20:00] VITALS: BP 156/76; PULSE 69; RESP 20; TEMP 98.5; O2SAT 98
[2017-07-31] VITALS: BP 161/73; PULSE 61; RESP 16; TEMP 97.2; O2SAT 97
[2017-07-31] MEDS: PIPERACIL-TAZO 3.375 GM PREMIX 50 ML IV SCH ×2 (02:16→09:36)
[2017-07-31] MEDS: NS + KCL 40 MEQ INJ 1,000 ML IV SCH (02:20)
[2017-07-31 04:00] VITALS: BP 161/82; PULSE 52; RESP 16; TEMP 97.8; O2SAT 100
[2017-07-31 06:22] LABS: HEMATOCRIT 35.5 % (35.0-46.0); MEAN CELL VOLUME 93.1 FL (80.0-100.0); MEAN CORPUSCULAR HEMOGLOBIN 31.9 PG (27.0-34.0); MEAN CORPUSCULAR HGB CONC 34.3 % (32.0-36.0); PLATELET COUNT 303 TH/MM3 (150-450); RED BLOOD COUNT 3.82 MIL/MM3 (4.00-5.30); RED CELL DISTRIBUTION WIDTH 13.1 % (11.6-17.2); REVIEW FLAG FINAL; WHITE BLOOD COUNT 10.9 TH/MM3 (4.0-11.0)
[2017-07-31 06:59] LABS: BICARBONATE 25.8 MEQ/L (21.0-32.0); POTASSIUM 3.6 MEQ/L (3.5-5.1)
[2017-07-31 08:00] VITALS: BP 136/72; PULSE 76; RESP 18; TEMP 97.7; O2SAT 95
[2017-07-31 08:10] VITALS: PULSE 83
[2017-07-31] MEDS: SODIUM CHLORIDE 0.9% FLUSH 10 ML FLUSH IV FLUSH SCH (09:00)
[2017-07-31] MEDS: PANTOPRAZOLE SOD 40 MG DELAYED RELEASE TAB PO SCH (09:36)
[2017-07-31] MEDS ORDERED: PROT40TA PO (10:05)
--- NOTE | 2017-07-31 10:07 | HHI.DS ---
Discharge Summary Admission Date Jul 30, 2017 at 12:00 Discharge Date: Jul 31, 2017 Admitting Diagnosis hematemesis, lower GI bleed, intractable abdominal pain (1) Hematemesis ICD Code: K92.0 - Hematemesis Status: Acute (2) Lower GI bleed ICD Code: K92.2 - Gastrointestinal hemorrhage, unspecified Status: Acute (3) Intractable abdominal pain ICD Code: R10.9 - Unspecified abdominal pain Status: Acute (4) Intractable vomiting with nausea ICD Code: R11.2 - Nausea with vomiting, unspecified Status: Acute Procedures EGD Brief History - From Admission Mrs. Vogel is an 89-year-old female. She came in with reports of abdominal pain. Hematemesis and melena are present. The patient does not have a reported prior history of bleeding. She has a past history of hypertension, diabetes mellitus type 2, hyperlipidemia, and osteoarthritis. No known history of anything such as ulcerative colitis or Crohn's disease. She does report that her has a past history of ulcer. She immigrated from [place] in [id number]. No other complaints. Nausea and vomiting are present. No chest pain. No fever or rash. CBC/BMP: 07/31/17 0455 07/31/17 0455 Significant Findings Laboratory Tests Test 07/29/17 00:47 07/29/17 02:46 07/29/17 06:00 07/29/17 11:55 White Blood Count 13.6 TH/MM3 (4.0-11.0) Neutrophils (%) (Auto) 84.1 % (16.0-70.0) 80.3 % (16.0-70.0) Lymphocytes (%) (Auto) 6.5 % (9.0-44.0) Neutrophils # (Auto) 11.4 TH/MM3 (1.8-7.7) 7.8 TH/MM3 (1.8-7.7) Lymphocytes # (Auto) 0.9 TH/MM3 (1.0-4.8) 0.9 TH/MM3 (1.0-4.8) Monocytes # (Auto) 1.0 TH/MM3 (0-0.9) Random Glucose 199 MG/DL (74-106) 147 MG/DL (74-106) Sodium Level 125 MEQ/L (136-145) 128 MEQ/L (136-145) Potassium Level 3.4 MEQ/L (3.5-5.1) 3.4 MEQ/L (3.5-5.1) Chloride Level 89 MEQ/L (98-107) 96 MEQ/L (98-107) Estimat Glomerular Filtration Rate 61 ML/MIN (>89) 78 ML/MIN (>89) Urine Ketones TRACE mg/dL (NEG) Red Blood Count 3.95 MIL/MM3 (4.00-5.30) Monocytes (%) (Auto) 8.1 % (0.0-8.0) Calcium Level 8.0 MG/DL (8.5-10.1) Test 07/29/17 18:20 07/31/17 04:55 Red Blood Count 3.82 MIL/MM3 (4.00-5.30) Blood Urea Nitrogen 3 MG/DL (7-18) Random Glucose 112 MG/DL (74-106) Estimat Glomerular Filtration Rate 79 ML/MIN (>89) Hospital Course Mrs. Vogel is an 89-year-old female. She came in secondary to hematemesis and melena. EGD was performed and showed gastritis, esophagitis, and duodenitis. Additionally she had several large ulcers in her stomach. Protonix has been recommended as treatment to take 40 mg by mouth daily. Patient's symptoms are improved. She is no longer showing signs of bleeding. Her abdominal pain is resolved. GI has cleared patient for discharge. Patient medically stable for discharge home today on recommend treatments. Pt Condition on Discharge: Stable Discharge Disposition: Discharge Home Discharge Time: <= 30 minutes Discharge Instructions DIET: Follow Instructions for: As Tolerated, No Restrictions Activities you can perform: Regular-No Restrictions Follow up Referrals: PCP Follow-up - 2 Weeks New Medications: Pantoprazole (Protonix) 40 Mg Tab 40 MG PO DAILY for Ulcer Prevention, #30 TAB 0 Refills Continued Medications: Amlodipine (Amlodipine) 10 Mg Tab 10 MG PO DAILY for Blood Pressure Management, #30 TAB 0 Refills Atorvastatin (Lipitor) 10 Mg Tab 10 MG PO HS for Cholesterol Management, #30 TAB 0 Refills Enalapril (Enalapril) 20 Mg Tab 20 MG PO DAILY, #30 TAB 0 Refills Ergocalciferol (Vitamin D2) 2,000 Unit Tab 91471 UNITS PO WEEKLY for Nutritional Supplement, TAB 0 Refills Hydrochlorothiazide (Hydrochlorothiazide) 12.5 Mg Cap 12.5 MG PO DAILY, #30 CAP 0 Refills Metformin (Metformin) 500 Mg Tab 500 MG PO DAILY for Blood Sugar Management, #30 TAB 0 Refills With a meal Metoprolol Tartrate (Metoprolol Tartrate) 25 Mg Tab 25 MG PO DAILY, #30 TAB 0 Refills Metronidazole (Flagyl) 500 Mg Tab 500 MG PO TID for Infection, #21 TAB 0 Refills Multiple Vitamins W/ Minerals (Centrum) 1 Chew 1 TAB CHEW DAILY for Nutritional Supplement, TAB 0 Refills Ondansetron (Zofran) 8 Mg Tab 8 MG PO TID for Nausea/Vomiting, #21 TAB 0 Refills Saxagliptin (Onglyza) 5 Mg Tab 5 MG PO DAILY for Blood Sugar Management, #30 TAB 0 Refills Tramadol (Ultram) 50 Mg Tab 50 MG PO Q6H PRN for PAIN, #20 TAB 0 Refills Discontinued Medications: Aspirin (Aspirin) 81 Mg Chew 81 MG CHEW DAILY, TAB 0 Refills Hans Holt MD Jul 31, 2017 10:07
--- NOTE | 2017-07-31 11:09 | HHI.GIFU ---
GI Follow-up Note Consult Follow-up Subjective: Patient laying in bed comfortably, feeling better .No nausea, vomiting, abdominal pain, no further gi bleeding .She had EGD yesterday-gastric ulcers, esophagitis, duodenitis Objective: PHYSICAL EXAMINATION: Vitals signs stable No fever Vital Signs Date Time Temp Pulse Resp B/P (MAP) Pulse Ox O2 Delivery O2 Flow Rate FiO2 07/31/17 08:00 97.7 76 18 136/72 (93) 95 07/31/17 04:00 97.8 52 16 161/82 (108) 100 HEENT: Pupils round and reactive to light; normocephalic; atraumatic; no jaundice. Throat is clear. NECK: Neck is supple, no JVD, no lymphadenopathy. CHEST: Chest is clear to auscultation and percussion. CARDIAC: Regular rate and rhythm with no murmur gallop or rubs. ABDOMEN: Soft, nondistended, nontender; no hepatosplenomegaly; bowel sounds are present in all four quadrants. EXTREMITIES: No clubbing, cyanosis, or edema. SKIN: Normal; no rash; no jaundice. MUSICAL INSTRUMENT MAKER OR REPAIRER: No focal deficits; alert and oriented times three. Available Data (labs, X- Rays, Procedues) : Laboratory Tests Test 07/29/17 11:55 07/29/17 18:20 07/31/17 04:55 Hemoglobin 12.8 GM/DL 12.5 GM/DL 12.2 GM/DL Hematocrit 36.8 % 37.2 % 35.5 % White Blood Count 10.9 TH/MM3 Red Blood Count 3.82 MIL/MM3 Mean Corpuscular Volume 93.1 FL Mean Corpuscular Hemoglobin 31.9 PG Mean Corpuscular Hemoglobin Concent 34.3 % Red Cell Distribution Width 13.1 % Platelet Count 303 TH/MM3 Mean Platelet Volume 8.1 FL Blood Urea Nitrogen 3 MG/DL Creatinine 0.70 MG/DL Random Glucose 112 MG/DL Calcium Level 8.6 MG/DL Sodium Level 141 MEQ/L Potassium Level 3.6 MEQ/L Chloride Level 107 MEQ/L Carbon Dioxide Level 25.8 MEQ/L Anion Gap 8 MEQ/L Estimat Glomerular Filtration Rate 79 ML/MIN ASSESSMENT/PLAN: gi bleeding secondary gastric ulcers-no indication of active bleeding abdominal pain-better reflux-improved Recommendations ok to dc home from gi point continue Pantoprazole avoid NSAIDS fu office 4-6 weeks egd in 6 weeks pending pathology report It was a pleasure seeing Torri Vogel Thank you for this consult. Entered by: Doris Abreu MD Jul 31, 2017 11:09
--- NOTE | 2017-07-31 17:55 | MB ---
cc: FELIX COLLIER M.D. DATE OF CONSULTATION: 07/29/2017 REFERRING PHYSICIAN: Dr. Holt. DATE OF : 1925 REASON FOR CONSULTATION: GI bleed. Miss Vogel is a very pleasant 89-year female who came to emergency room with complaints of abdominal pain in the epigastrium and retrosternal and also had some hematemesis along with melena. Denies any previous episode of bleeding. She did have a colonoscopy 10 years ago or more and that was normal. She denies any weight loss, constipation, diarrhea and denies any history of NSAID use. PAST HISTORY 1. Hypertension 2. Diabetes 3. High cholesterol 4. Osteoarthritis 5. Cataract. PAST SURGICAL HISTORY 1. Cataract history 2. Left hip dislocation MEDICATIONS: 1. Zofran 2. Flagyl 3. Ultram 4. medication at home vitamin D. 5. Two aspirin 6. Centrum Silver 7. Metformin 8. Metoprolol 9. Lipitor 10. Cefepime 11. Hydrochlorothiazide 12. Enalapril 13. Amlodipine ALLERGIES No known drug allergies In the hospital was started on antibiotics and PPI FAMILY HISTORY: No family history of Colon cancer or any other GI pathology. SOCIAL HISTORY Denies smoking, drinking or drug use. REVIEW OF SYSTEMS IN GENERAL: Denies any fever or chills, weight loss or weight gain. ENT: No alteration in baseline hearing or visual acuity PULMONARY: Denies any chest pain, shortness of breath. GASTROINTESTINAL: As above. GENITOURINARY: Denies dysuria, hematuria. HEMATOLOGIC: No history of anemia or bleeding disorder. SKIN: No alteration of baseline skin lesion. NEUROLOGIC: No history of transient ischemic attack or cerebrovascular accident kind of symptoms. PHYSICAL EXAMINATION: IN GENERAL: On clinical exam the patient is sitting comfortably in bed in no acute distress. VITAL SIGNS: Temperature is 97.7, pulse 76, respiration 18, blood pressure 136/72, temperature 95. HEAD, EYES, EARS, NOSE, AND THROAT: Pupils equal, round, reactive to light and accommodation. NECK: No JVD. No lymphadenopathy. CHEST: Clear to auscultation on palpation. CARDIOVASCULAR SYSTEM: S1, S2, No murmur. ABDOMEN: Soft, nontender. Bowel sounds are present. CENTRAL NERVOUS SYSTEM: Awake, alert, oriented x3. No focal signs identified. LABORATORY FINDINGS: Hemoglobin on admission 13.2 currently 12.5 and her chemistry essentially normal except glucose 199. RADIOLOGIC: The patient had not CT abdomen and pelvis which was essentially suggestive of diverticulitis otherwise benign. IMPRESSION This Miss Vogel is a very pleasant 89-year-old lady admitted with abdominal pain, GI bleed, most likely peptic ulcer disease. Other etiology or include GI malignancy, telangiectasias hemodynamically stable. RECOMMENDATIONS Upper endoscopy will be scheduled on the morning unless indicated otherwise, the risks and benefits were discussed with the patient, she is agreeing with that. Monitor H&H closely. Transfusion as needed. Protonix. Further recommendation will depend on the patient's clinical status and the above results. I like to thank Dr. Holt for referring her to our office for consultation. Further recommendation will depend on the patient's clinical status and the above results. Thank you again we will continue to follow them. The patient along with you. MD DUKE Wolf/ricki /5:14 PM /5:34 PM
== END 2017-07-31 14:03 | disposition home or self-care (01) | DRG 379 ==
LOC: PHED 23:40 → PHEDA 07-29 03:09 → INTOOBSV 07-29 03:09 → PHEDA 07-29 03:18 → UNDOADMIN 07-29 03:18 → PH3B 07-29 07:36 → OBSVTOIN 07-30 12:00
PROVIDERS: ADMIT Hospitalist; ATTEND Hospitalist
PROC: 0DB78ZX Excision of Stomach, Pylorus, Via Natural or Artificial Opening Endoscopic, Diagnostic (ICD-10-PCS; 2017-07-30)
PROC: 0DB38ZX Excision of Lower Esophagus, Via Natural or Artificial Opening Endoscopic, Diagnostic (ICD-10-PCS; principal; 2017-07-30 12:30)
DX: K25.4 Chronic or unspecified gastric ulcer with hemorrhage (principal); E11.9 Type 2 diabetes mellitus without complications; I10 Essential (primary) hypertension; M19.90 Unspecified osteoarthritis, unspecified site; E78.5 Hyperlipidemia, unspecified; K21.0 Gastro-esophageal reflux disease with esophagitis; K29.80 Duodenitis without bleeding; K57.90 Diverticulosis of intestine, part unspecified, without perforation or abscess without bleeding; K29.70 Gastritis, unspecified, without bleeding; Z79.84 Long term (current) use of oral hypoglycemic drugs
CPT/HCPCS: 74177; 80048; 80053; 81001; 82948; 83690; 85014; 85018; 85025; 85027; 85610; 85730; 88305; 96360; 99285; G8987-GP; G8988-GP; J2543; J3480; J7030; J7120; Q9967